=== PATIENT | male | born 1945 | race Caucasian/White ===

== ENCOUNTER 2017-03-10 02:05 | Inpatient (IN) | payer OTHER ==
--- NOTE | 2017-03-10 02:17 | PDOC ---
History of Present Illness - General Chief Complaint: Pain, Acute Stated Complaint: ABDOMINAL PAIN Time Seen by Provider: 03/10/17 02:07 History Source: Patient Exam Limitations: No Limitations - History of Present Illness Initial Comments: 03/10/17 02:14 This is a 72-year-old male with extensive to her history of abdominal surgeries in the past. Patient is had multiple abdominal surgeries including a colostomy that is been reversed and surgeries for a number of different hernias. Patient has a currently an abdominal umbilical hernia that he said occasionally protrudes out but is usually always able to reduce it. However patient teaches a martial arts class and immediately following the class and developed pain in the area of his umbilical hernia. Patient was unable to reduce it and over the next several hours he said is gotten progressively more painful. Patient now comes in for evaluation. Patient said he did have a normal bowel movement today. Patient had a small bowel movement after onset of the pain as well. PAST MEDICAL HISTORY: As per history of present illness PAST SURGICAL HISTORY: no significant history FAMILY HISTORY: no pertinant history SOCIAL HISTORY: Pt lives with family and is employed. MEDICATIONS: reviewed ALLERGIES: As per nursing notes Review of Systems General: No fevers or chills, no weakness, no weight loss HEENT: No change in vision. No sore throat,. No ear pain CardioVascular: No chest pain or shortness of breath Respiratory:No cough, or wheezing. Gastrointestinal: Abdominal pain Genitourinary: No dysuria, hematuria, or frequency Musculoskeletal: No joint or muscle pain or swelling Neurologic: No headache, vertigo, dizziness or loss of consciousness Psychiatric: nor depression Skin: No rashes or easy bruising Endocrine: no increased thirst or abnormal weight change Allergic: no skin or latex allergy All other systems reviewed and normal Exam: General: Well-nourished well-developed individual, no acute distress HEENT: Throat: Normal, tonsils normal, no erythema or exudate Neck: Supple, no meningeal signs, no lymphadenopathy Eyes::Pupils equal reactive and round, extraocular motion intact Chest: Nontender to palpation Cardiac: S1-S2 normal, regular rate and rhythm, no murmurs rubs or gallops Respiratory: Lungs clear to auscultation bilateral Abdomen: Soft, nondistended, decreased bowel sounds and tenderness on palpation above the umbilicus however there is no obvious palpable hernia but patient is markedly tender in the area. Extremities: Warm, dry, no cyanosis, clubbing, or edema Skin: No rashes Neuro: Alert and oriented x3, nonfocal exam, grossly intact, normal gait Psych: Normal mood and affect CT scan shows high-grade small bowel obstruction that is unrelated to the hernia most likely secondary to adhesions. Patient's surgeon is Dr. Hanh Gomez discussed this with him and he recommends we put an NG tube in admitting keep him nothing by mouth. Patient will be admitted under the service of his primary care doctor which is Dr. Serrato but Dr. Marvin does the admissions. Past History - Past Medical History Allergies/Adverse Reactions: Allergies Allergy/AdvReac Type Severity Reaction Status Date / Time ciprofloxacin [From Cipro] Allergy Unverified 11/12/14 14:34 ciprofloxacin HCl Allergy Verified 11/12/14 14:33 [From Cipro] hydromorphone HCl Allergy Verified 11/12/14 14:35 [From Dilaudid] triazolam [From Halcion] Allergy Verified 11/12/14 14:35 Home Medications: Ambulatory Orders Aspirin [ASA -] 81 mg PO DAILY 11/12/14 Candesartan Cilexetil [Atacand -] 1 tab PO DAILY 11/12/14 Cholecalciferol (Vitamin D3) [Vitamin D3] 1 tab PO BID 11/12/14 Lactobacillus Acidophilus [Acidophilus] 1 each PO DAILY 11/12/14 Ranitidine HCl [Zantac] 150 mg PO DAILY 11/12/14 Ubidecarenone [Co Q-10] 10 mg PO DAILY 11/12/14 Fexofenadine HCl [Mi] 180 mg PO PRN PRN 11/15/14 Fluticasone Propionate 16 gm NS PRN 11/15/14 Garlic Extract [Garlipure] 1 tab PO BID #0 11/15/14 Ibuprofen [Advil -] 600 mg PO PRN PRN 11/15/14 Lorazepam [Ativan] 0.5 mg PO PRN PRN 11/15/14 Escitalopram Oxalate [Lexapro -] 15 mg PO HS 07/02/16 Metoprolol Succinate [Toprol XL -] 12.5 mg PO DAILY 07/02/16 Anemia: No Asthma: No Cancer: Yes Cardiac Disorders: No CVA: No COPD: No CHF: No Dementia: No Diabetes: No GI Disorders: Yes (GERD WITH RESOLVED LINDER'S.COLON POLYP,DIVERTICULOSIS) Disorders: No HTN: Yes Hypercholesterolemia: No Liver Disease: No Seizures: No Thyroid Disease: No - Surgical History Abdominal Surgery: Yes (INCISIONAL HERNIA REPAIRS X4) Appendectomy: No Cardiac Surgery: No Cholecystectomy: Yes (LAPAROSCOPIC) Lung Surgery: No Neurologic Surgery: No Orthopedic Surgery: Yes (MENISCUS REPAIR LEFT KNEE) - Psycho/Social/Smoking Cessation Hx Suicidal Ideation: No Smoking History: Former smoker Have you smoked in the past 12 months: No Information on smoking cessation initiated: No Hx Alcohol Use: Yes (WEEKLY) Drug/Substance Use Hx: No Substance Use Type: None Hx Substance Use Treatment: No *Physical Exam - Vital Signs Last Vital Signs Temp Pulse Resp BP Pulse Ox 98.8 F 86 18 126/80 100 03/10/17 02:10 03/10/17 02:10 03/10/17 02:10 03/10/17 02:10 03/10/17 02:10 ED Treatment Course - LABORATORY CBC & Chemistry Diagram: 03/10/17 02:36 03/10/17 02:36 *DC/Admit/Observation/Transfer Diagnosis at time of Disposition: Small bowel obstruction due to adhesions - Discharge Dispostion Condition at time of disposition: Stable Admit: Yes
[2017-03-10] MEDS ORDERED: morphine CARPU-JECT 4 MG/1 ML DISP.SYRIN IVPUSH ONE (02:20)
[2017-03-10] MEDS ORDERED: morphine CARPU-JECT 4 MG/1 ML DISP.SYRIN ONE ×2 (02:22→08:45)
[2017-03-10] MEDS ORDERED: ONDANSETRON 4 MG/2 ML VIAL IVPB ONE (02:36)
[2017-03-10] MEDS ORDERED: ONDANSETRON 4 MG/2 ML VIAL ONE (02:39)
[2017-03-10 03:12] LABS: BASOPHIL 0.3 % (0-2.0); EOSINOPHIL 0.3 % (0-4.5); MCH 29.6 pg (25.7-33.7); MCHC 33.5 g/dl (32.0-35.9); MEAN CELL VOLUME 88.5 fl (80-96); NEUTROPHILS 83.9 % (42.8-82.8); PLATELET COUNT 184 K/MM3 (134-434); RDW 13.8 % (11.9-15.9); WHITE BLOOD COUNT 12.9 K/mm3 (4.0-10.0)
[2017-03-10 03:27] LABS: ALBUMIN 3.9 g/dl (3.4-5.0); ANION GAP 10 (8-16); BILIRUBIN,TOTAL 1.4 mg/dL (0.2-1.0); CALCIUM 9.2 mg/dL (8.5-10.1); CO2 27 mmol/L (21-32); CREATININE 0.9 mg/dL (0.7-1.3); GLUCOSE,RANDOM 102 mg/dL (74-106); SGPT/ALT 24 U/L (12-78); TOT PROT 6.8 g/dl (6.4-8.2)
[2017-03-10 03:28] LABS: ALK PHOS 57 U/L (45-117)
[2017-03-10 03:29] LABS: SGOT/AST 37 U/L (15-37)
[2017-03-10] MEDS ORDERED: morphine CARPU-JECT 2 MG/1 ML DISP.SYRIN IVPUSH ONE (05:21)
[2017-03-10] MEDS ORDERED: morphine CARPU-JECT 2 MG/1 ML DISP.SYRIN ONE (05:21)
[2017-03-10] MEDS ORDERED: LORazepam 0.5 MG TABLET PO PRN (12:07)
[2017-03-10] MEDS ORDERED: FLUTICASONE PROP 0.05% 16 GM NASAL SPRAY NS PRN (12:15)
--- NOTE | 2017-03-10 12:58 | HP ---
DATE OF ADMISSION: 03/10/2017 REFERRING PHYSICIAN: Emergency room. REASON FOR REFERRAL: Small-bowel obstruction. BRIEF HISTORY: This is a 72-year-old gentleman with a multitude of abdominal surgeries, who presented to the hospital with progressive increasing abdominal pain over the past day and a half. The patient thought he was actually getting well prior to this admission to the emergency room since he moved his bowels and has passed gas. Since that event, it did get a little worse and therefore he presented to the ER. In the ER, he underwent a CAT scan of the abdomen and pelvis. CT demonstrated findings consistent with a small bowel obstruction, no obvious transition zone noted. Patient is noted to have an incisional hernia without evidence of obstruction at the hernia site. Currently patient states he feels much better since the tube had gone in (tube output is approximately 1 L of bilious material). PAST MEDICAL HISTORY: As above. PAST SURGICAL HISTORY: Patient has had laparotomies, hernia repairs, bowel resection with colectomy, colostomy and eventual reversal. SOCIAL HISTORY: Patient does not smoke, drinks socially. ALLERGIES: None. MEDICATIONS: Refer to chart. PHYSICAL EXAMINATION: Abdomen: Mildly distended, soft, nontender. He has a poorly-healed midline scar from stem to hassan. He has a small incisional hernia noted at the level of the umbilicus. This is nontender. The remainder of the abdominal examination is unremarkable. He clearly has no peritoneal findings. LABORATORY DATA: White count is 12.9. IMPRESSION/PLAN: Small-bowel obstruction versus partial small-bowel obstruction. At this point, the patient clearly is not acute and there is no evidence of ischemia. I would recommend conservative management with this bowel obstruction at this time. The patient has an NG tube. Will continue with suction and reevaluate. Most of these obstructions will continue to improve with medical management. If his does not, he will ultimately require laparotomy, lysis of adhesions. Will continue to follow patient. Thank you for allowing me to participate in the care of your patient. If you have any questions, please feel free to give me a call directly. DICK AZUL M.D. [id number] cc: Hospitalist
[2017-03-10] MEDS ORDERED: RANITIDINE HCL 150 MG TABLET (FP) PO SCH (13:00)
--- NOTE | 2017-03-10 13:28 | HP ---
DATE OF ADMISSION: 03/10/2017 The patient is a 72-year-old male who was brought in to the emergency room with abdominal pain of a day's duration. Patient has a past medical history of ruptured diverticulitis, and he had a colostomy and had incisional hernias and intestinal obstruction. They have relieved spontaneously and once with NG decompression. He also had a cholecystectomy and multiple other surgeries and has had recurrent intestinal obstruction. Yesterday in the morning, the patient had a bowel movement and subsequently started having abdominal pain. The pain was progressively getting worse and he recognized the pain as being of intestinal obstruction. He brought himself to the emergency room last night as the pain was getting worse. There was no vomiting, there was no fever. In the emergency room, he had a CAT scan that revealed high level small-bowel intestinal obstruction unrelated to the hernia, likely from adhesions. Since then, he has been placed on an NG tube and he feels comfortable but the pain persists. Other past medical history is significant for depression and hypertension. PRESENT MEDICATIONS: Atacand 4 mg p.o. daily, Lexapro 15 mg daily, Toprol XL 12.5 mg daily. ALLERGIES: None. SOCIAL HISTORY: He is . He has 2 children. He is a swim instructor. He is a nonsmoker. He drinks occasionally. FAMILY HISTORY: Significant for 2 brothers. There is no significant family history. REVIEW OF SYSTEMS: Unremarkable. He has generally been in good health. He denies any chronic headache, dizziness, chest pain, palpitations, abdominal pain, loss of weight, loss of appetite. Patient, however, has had on and off abdominal pain that is compatible with partial small-bowel obstruction that gets relieved spontaneously. PHYSICAL EXAMINATION: Vital Signs: He has a blood pressure of 123/70, pulse rate of 92, respiratory rate of 16, temperature 98.3. Head and Neck: He is not pale, not icteric. JVD is absent. Thyroid and carotids appear normal. Heart: Regular rhythm. No murmurs. Lungs: Vesicular breathing. Clear. Abdomen: Multiple surgical incisions. It has mild tenderness in the right upper quadrant and epigastric region. Bowel sounds are absent. Herniorrhaphies are intact. Extremities: No edema. He has a white count of 12,900, with normal distribution of cells. Comprehensive metabolic profile, apart from bilirubin of 1.4, is within normal limits. Patient had a CAT scan that has been preliminarily reported as high-grade small-bowel obstruction unrelated to the hernia. ASSESSMENT AND PLAN: 1. Small-bowel obstruction. Would admit. I shall place him on IV fluids, decompression, pain management, observe, follow electrolytes, surgical evaluation. 2. Hypertension. 3. Depression. Continue present medications which could be administered by clamping the NG tube for a while. DENVER BAZAN M.D. [id number]
[2017-03-10] MEDS: VALSARTAN 40 MG TABLET (FP) PO SCH (13:31)
[2017-03-10] MEDS: METOPROLOL SUCCINATE 25 MG TAB.SR.24H (FP) PO SCH (13:31)
[2017-03-10] MEDS: CHOLECALCIFEROL (VITAMIN D3) 1,000 UNIT TABLET (FP) PO SCH ×2 (13:32→21:24)
[2017-03-10] MEDS: morphine CARPU-JECT 4 MG/1 ML DISP.SYRIN IVPUSH PRN (13:33)
[2017-03-10 17:28] VITALS: BMI 34.8
[2017-03-10] MEDS: ESCITALOPRAM OXALATE 10 MG TABLET (FP) PO SCH (21:24)
[2017-03-11] MEDS: morphine CARPU-JECT 4 MG/1 ML DISP.SYRIN IVPUSH PRN ×3 (00:30→23:18)
[2017-03-11 09:07] LABS: BASOPHIL 0.1 % (0-2.0); EOSINOPHIL 1.6 % (0-4.5); MCH 30.3 pg (25.7-33.7); MCHC 33.5 g/dl (32.0-35.9); MEAN CELL VOLUME 90.4 fl (80-96); MEAN PLT VOLUME 9.2 fl (7.5-11.1); NEUTROPHILS 72.7 % (42.8-82.8); PLATELET COUNT 162 K/MM3 (134-434); RDW 13.5 % (11.9-15.9)
[2017-03-11] MEDS: RANITIDINE HCL 150 MG TABLET (FP) PO SCH (09:10)
[2017-03-11] MEDS: CHOLECALCIFEROL (VITAMIN D3) 1,000 UNIT TABLET (FP) PO SCH ×2 (09:10→21:11)
[2017-03-11] MEDS: METOPROLOL SUCCINATE 25 MG TAB.SR.24H (FP) PO SCH (09:11)
[2017-03-11] MEDS: VALSARTAN 40 MG TABLET (FP) PO SCH (09:11)
--- NOTE | 2017-03-11 09:20 | EKG ---
Test Reason : Blood Pressure : / mmHG Vent. Rate : 090 BPM Atrial Rate : 090 BPM P-R Int : 174 ms QRS Dur : 096 ms QT Int : 368 ms P-R-T Axes : 022 043 003 degrees QTc Int : 450 ms SINUS RHYTHM NONSPECIFIC ST AND T WAVE ABNORMALITY WHEN COMPARED WITH ECG OF 21-JUL-2009 14:05, Criteria for LVH is no longer present Confirmed by LUIS MILLER MD ([id number]) on 03/11/2017 9:19:35 AM Referred By: MD BARRIOS Confirmed By:LUIS MILLER MD
[2017-03-11 09:24] LABS: ALBUMIN 3.5 g/dl (3.5-5.0); ALK PHOS 43 U/L (32-92); BILIRUBIN,TOTAL 1.3 mg/dl (0.2-1.0); CALCIUM 7.7 mg/dl (8.4-10.2); CREATININE 0.9 mg/dl (0.6-1.3); GLUCOSE,RANDOM 113 mg/dl (74-106); SGOT/AST 22 U/L (10-42); SGPT/ALT 16 U/L (10-40); TOT PROT 5.6 g/dl (6.4-8.3)
--- NOTE | 2017-03-11 10:05 | PN ---
Progress Note, Physician Chief Complaint: Mr Gallardo says he is doing well. Still with some abdominal pain but much improved. No chest pain or shortness of breath. - Current Medication List Current Medications: Active Medications Cholecalciferol (Vitamin D3 -) 1,000 unit PO BID [facility] Last Admin: 03/11/17 09:10 Dose: 1,000 unit Escitalopram Oxalate (Lexapro -) 15 mg PO HS [facility] Last Admin: 03/10/17 21:24 Dose: Not Given Fluticasone Propionate (Flonase -) 2 spray NS DAILY PRN PRN Reason: ALLERGIC RHINITIS Lorazepam (Ativan -) 0.5 mg PO BID PRN PRN Reason: ANXIETY Metoprolol Succinate (Toprol Xl -) 12.5 mg PO DAILY [facility] Last Admin: 03/11/17 09:11 Dose: 12.5 mg Morphine Sulfate (Morphine Injection -) 4 mg IVPUSH Q3H PRN PRN Reason: PAIN Last Admin: 03/11/17 00:30 Dose: 4 mg Ranitidine HCl (Zantac -) 150 mg PO DAILY [facility] Last Admin: 03/11/17 09:10 Dose: 150 mg Valsartan (Diovan -) 40 mg PO DAILY [facility] Last Admin: 03/11/17 09:11 Dose: 40 mg - Objective Vital Signs: Vital Signs Temperature 97.6 F 03/11/17 06:35 Pulse Rate 78 03/11/17 06:35 Respiratory Rate 18 03/11/17 08:52 Blood Pressure 134/66 03/11/17 06:35 O2 Sat by Pulse Oximetry (%) 96 03/11/17 08:52 Constitutional: Yes: No Distress, Calm, Obese Cardiovascular: Yes: Regular Rate and Rhythm. No: Gallop, Murmur, Rub Respiratory: Yes: Regular, CTA Bilaterally. No: Rales, Rhonchi, Wheezes Gastrointestinal: Yes: Soft, Hypoactive Bowel Sounds (present but minimal, high pitched), Tenderness. No: Distention Extremities: Yes: WNL Edema: No Labs: CBC, BMP 03/11/17 07:00 03/11/17 07:00 Problem List - Problems (1) Small bowel obstruction due to adhesions Assessment/Plan: -case d/w surgery -NGT in place, remain in place until Saturday -improving -continue IVF Code(s): K56.5 - INTESTINAL ADHESIONS W OBST (POSTPROCEDURAL) (POSTINFECTION) (2) HTN (hypertension) Assessment/Plan: -continue valsartan and metoprolol -controlled Code(s): I10 - ESSENTIAL (PRIMARY) HYPERTENSION (3) Depression Assessment/Plan: -well controlled -continue lexapro Code(s): F32.9 - MAJOR DEPRESSIVE DISORDER, SINGLE EPISODE, UNSPECIFIED
[2017-03-11] MEDS: MENTHOL/PHENOL 1 EACH UD MM PRN ×2 (11:26→23:19)
[2017-03-11 11:29] LABS: ANION GAP 6 (8-16); CO2 27 mmol/L (22-28)
[2017-03-11] MEDS ORDERED: PT OWN MED DRAWER 7, Y5N ONE ×2 (11:39→23:17)
[2017-03-11] MEDS: ESCITALOPRAM OXALATE 10 MG TABLET (FP) PO SCH (21:11)
[2017-03-12 08:55] LABS: ANION GAP 5 (8-16); CALCIUM 8.6 mg/dl (8.4-10.2); CO2 31 mmol/L (22-28); CREATININE 0.8 mg/dl (0.6-1.3); GLUCOSE,RANDOM 108 mg/dl (74-106); PHOSPHOROUS 1.8 mg/dl (2.5-4.6)
[2017-03-12 09:02] LABS: BASOPHIL 1.1 % (0-2.0); EOSINOPHIL 2.8 % (0-4.5); MCH 30.7 pg (25.7-33.7); MCHC 33.9 g/dl (32.0-35.9); MEAN CELL VOLUME 90.5 fl (80-96); MEAN PLT VOLUME 9.4 fl (7.5-11.1); NEUTROPHILS 68.1 % (42.8-82.8); PLATELET COUNT 166 K/MM3 (134-434); RDW 13.3 % (11.9-15.9); WHITE BLOOD COUNT 8.1 K/mm3 (4.0-10.8)
[2017-03-12] MEDS: METOPROLOL SUCCINATE 25 MG TAB.SR.24H (FP) PO SCH (09:47)
[2017-03-12] MEDS: RANITIDINE HCL 150 MG TABLET (FP) PO SCH (09:47)
[2017-03-12] MEDS: CHOLECALCIFEROL (VITAMIN D3) 1,000 UNIT TABLET (FP) PO SCH ×2 (09:47→21:34)
--- NOTE | 2017-03-12 10:53 | PN ---
Progress Note, Physician History of Present Illness: Feeling better, less abd pain (just a little uncomfortable with NG tube still in ). Notes that he has been passing flatus. - Current Medication List Current Medications: Active Medications Acetaminophen (Tylenol -) 650 mg PO Q4H PRN PRN Reason: FEVER OR PAIN Cholecalciferol (Vitamin D3 -) 1,000 unit PO BID [facility] Last Admin: 03/12/17 09:47 Dose: 1,000 unit Escitalopram Oxalate (Lexapro -) 15 mg PO HS [facility] Last Admin: 03/11/17 21:11 Dose: 15 mg Eucalyptus/Menthol/Phenol/Sorbitol (Cepastat Lozenge -) 1 each MM Q4H PRN PRN Reason: SORE THROAT Last Admin: 03/11/17 23:19 Dose: 1 each Fluticasone Propionate (Flonase -) 2 spray NS DAILY PRN PRN Reason: ALLERGIC RHINITIS Lorazepam (Ativan -) 0.5 mg PO BID PRN PRN Reason: ANXIETY Last Admin: 03/11/17 21:11 Dose: 0.5 mg Metoprolol Succinate (Toprol Xl -) 12.5 mg PO DAILY [facility] Last Admin: 03/12/17 09:47 Dose: 12.5 mg Morphine Sulfate (Morphine Injection -) 4 mg IVPUSH Q3H PRN PRN Reason: PAIN Last Admin: 03/11/17 23:18 Dose: 4 mg Ranitidine HCl (Zantac -) 150 mg PO DAILY [facility] Last Admin: 03/12/17 09:47 Dose: 150 mg Valsartan (Diovan -) 40 mg PO DAILY [facility] Last Admin: 03/11/17 09:11 Dose: 40 mg - Objective Vital Signs: Vital Signs Temperature 97.5 F L 03/12/17 07:39 Pulse Rate 60 03/12/17 07:39 Respiratory Rate 17 03/12/17 07:39 Blood Pressure 153/74 03/12/17 07:39 O2 Sat by Pulse Oximetry (%) 94 L 03/12/17 06:59 Constitutional: Yes: No Distress, Calm HENT: Yes: Other (NG tube present with bilious fluid draining) Neck: Yes: Supple, Trachea Midline Cardiovascular: Yes: Regular Rate and Rhythm, S1, S2. No: Murmur Respiratory: Yes: Regular, CTA Bilaterally. No: Rales, Rhonchi, Wheezes Gastrointestinal: Yes: Soft, Other (suction sounds present, non-protruding abd wall hernias). No: Distention, Tenderness Edema: No Neurological: Yes: Alert, Oriented Labs: CBC, BMP 03/12/17 05:53 03/12/17 05:53 Assessment/Plan Current Active Problems Small bowel obstruction due to adhesions (Acute) Depression (Acute) HTN (hypertension) (Acute) -cont NG tube suction, NPO -possible d/c of NG tube tomorrow and observation of SBO resolution
[2017-03-12] MEDS: MENTHOL/PHENOL 1 EACH UD MM PRN (19:30)
[2017-03-12] MEDS: ACETAMINOPHEN 325 MG TABLET (FP) PO PRN (21:02)
[2017-03-12] MEDS ORDERED: PHENOL 177 ML SPRAY BOTTLE MM PRN (21:14)
[2017-03-12] MEDS: D5-NS + 20 MEQ KCL - 1,000 ML IV SCH (21:34)
[2017-03-12] MEDS: ESCITALOPRAM OXALATE 10 MG TABLET (FP) PO SCH (21:34)
[2017-03-12] MEDS: CANDESARTAN CILEXETIL 4 MG TABLET PO SCH (21:35)
[2017-03-12] MEDS: LORAZEPAM CARPU-JECT 2 MG/ML DISP.SYRIN IVPB PRN (22:37)
[2017-03-13 09:18] LABS: ALBUMIN 3.8 g/dl (3.5-5.0); ALK PHOS 48 U/L (32-92); ANION GAP 6 (8-16); BILIRUBIN,TOTAL 1.2 mg/dl (0.2-1.0); CALCIUM 8.8 mg/dl (8.4-10.2); CO2 29 mmol/L (22-28); CREATININE 0.9 mg/dl (0.6-1.3); GLUCOSE,RANDOM 118 mg/dl (74-106); PHOSPHOROUS 2.2 mg/dl (2.5-4.6); SGOT/AST 26 U/L (10-42); SGPT/ALT 20 U/L (10-40); TOT PROT 6.2 g/dl (6.4-8.3)
[2017-03-13] MEDS ORDERED: PT OWN MED DRAWER 7, Y5N ONE ×4 (09:18→21:07)
--- NOTE | 2017-03-13 09:53 | PN ---
Progress Note, Physician Chief Complaint: Mr Gallardo says he is doing well. Minimal drainage from the NGT. Patient with flatus and bowel movements. No cp or sob. - Current Medication List Current Medications: Active Medications Acetaminophen (Tylenol -) 650 mg PO Q4H PRN PRN Reason: FEVER OR PAIN Last Admin: 03/12/17 21:02 Dose: 650 mg Candesartan Cilexetil (Atacand (Nf) -) 4 mg PO HS [facility] Last Admin: 03/12/17 21:35 Dose: 4 mg Cholecalciferol (Vitamin D3 -) 1,000 unit PO BID [facility] Last Admin: 03/12/17 21:34 Dose: 1,000 unit Escitalopram Oxalate (Lexapro -) 15 mg PO HS [facility] Last Admin: 03/12/17 21:34 Dose: 15 mg Eucalyptus/Menthol/Phenol/Sorbitol (Cepastat Lozenge -) 1 each MM Q4H PRN PRN Reason: SORE THROAT Last Admin: 03/12/17 19:30 Dose: 1 each Fluticasone Propionate (Flonase -) 2 spray NS DAILY PRN PRN Reason: ALLERGIC RHINITIS Dextrose/Sodium Chloride (Dextrose 5%-Normal Saline+20 Meq Kcl -) 1,000 mls @ 125 mls/hr IV ASDIR [facility] Last Admin: 03/12/17 21:34 Dose: 125 mls/hr Lorazepam (Ativan Injection -) 0.5 mg IVPB BID PRN PRN Reason: ANXIETY Last Admin: 03/12/17 22:37 Dose: 0.5 mg Metoprolol Succinate (Toprol Xl -) 12.5 mg PO DAILY [facility] Last Admin: 03/12/17 09:47 Dose: 12.5 mg Morphine Sulfate (Morphine Injection -) 4 mg IVPUSH Q3H PRN PRN Reason: PAIN Last Admin: 03/11/17 23:18 Dose: 4 mg Phenol/Menthol (Chloraseptic -) 1 spray MM Q4H PRN PRN Reason: FOR PAIN Last Admin: 03/12/17 21:35 Dose: 1 spray Ranitidine HCl (Zantac -) 150 mg PO DAILY [facility] Last Admin: 03/12/17 09:47 Dose: 150 mg - Objective Vital Signs: Vital Signs Temperature 98.5 F 03/13/17 06:00 Pulse Rate 63 03/13/17 06:00 Respiratory Rate 19 03/13/17 06:00 Blood Pressure 153/78 03/13/17 06:00 O2 Sat by Pulse Oximetry (%) 98 03/13/17 08:59 Constitutional: Yes: Well Nourished, No Distress, Calm Cardiovascular: Yes: Regular Rate and Rhythm. No: Gallop, Murmur, Rub Respiratory: Yes: Regular, CTA Bilaterally. No: Rales, Rhonchi, Wheezes Gastrointestinal: Yes: Normal Bowel Sounds, Soft. No: Distention, Tenderness Extremities: Yes: WNL Edema: No Labs: CBC, BMP 03/12/17 05:53 03/13/17 08:15 Problem List - Problems (1) Small bowel obstruction due to adhesions Code(s): K56.5 - INTESTINAL ADHESIONS W OBST (POSTPROCEDURAL) (POSTINFECTION) (2) HTN (hypertension) Code(s): I10 - ESSENTIAL (PRIMARY) HYPERTENSION (3) Depression Code(s): F32.9 - MAJOR DEPRESSIVE DISORDER, SINGLE EPISODE, UNSPECIFIED Assessment/Plan (1) Small bowel obstruction due to adhesions Assessment/Plan: -resolved -remove NGT -clear liquid diet, advance as tolerated -possible discharge tomorrow Code(s): K56.5 - INTESTINAL ADHESIONS W OBST (POSTPROCEDURAL) (POSTINFECTION) (2) HTN (hypertension) Assessment/Plan: -continue valsartan and metoprolol -slightly elevated today, monitor Code(s): I10 - ESSENTIAL (PRIMARY) HYPERTENSION (3) Depression Assessment/Plan: -well controlled -continue lexapro Code(s): F32.9 - MAJOR DEPRESSIVE DISORDER, SINGLE EPISODE, UNSPECIFIED
[2017-03-13] MEDS: METOPROLOL SUCCINATE 25 MG TAB.SR.24H (FP) PO SCH (10:35)
[2017-03-13] MEDS: CHOLECALCIFEROL (VITAMIN D3) 1,000 UNIT TABLET (FP) PO SCH ×2 (10:35→21:17)
[2017-03-13] MEDS: RANITIDINE HCL 150 MG TABLET (FP) PO SCH (10:36)
[2017-03-13 11:56] LABS: PH,URINE 7.5 (4.5-8); URINE APPEARANCE Clear; URINE BILIRUBIN Negative (NEGATIVE); URINE BLOOD Negative (NEGATIVE); URINE GLUCOSE (UA) Negative (NEGATIVE); URINE KETONE Negative (NEGATIVE); URINE LEUK ESTERASE Negative (NEGATIVE); URINE NITRITE Negative (NEGATIVE); URINE PROTEIN Negative (NEGATIVE); URINE UROBILINOGEN 4.0 E.U/dl (0.2-1.0)
[2017-03-13 11:57] LABS: URINE COLOR YELLOW
--- NOTE | 2017-03-13 12:52 | PN ---
Progress Note (short form) - Note Progress Note: surgery pt seen and examined. feels well. tolerating clear liquids. bm and flatus. no pain afebrile abd- soft, nt Plan- resolving psbo- advance to fulls as tolerates. would stay on liquids for 1 week. should consider elective incisional hernia repair.
[2017-03-13] MEDS: D5-NS + 20 MEQ KCL - 1,000 ML IV SCH (21:15)
[2017-03-13] MEDS: ESCITALOPRAM OXALATE 10 MG TABLET (FP) PO SCH (21:16)
[2017-03-13] MEDS: CANDESARTAN CILEXETIL 4 MG TABLET PO SCH (21:17)
[2017-03-13] MEDS: ACETAMINOPHEN 325 MG TABLET (FP) PO PRN (21:17)
[2017-03-13] MEDS: LORAZEPAM CARPU-JECT 2 MG/ML DISP.SYRIN IVPB PRN (21:18)
[2017-03-14 06:26] VITALS: BP 151/74; PULSE 61; TEMP 97.4
[2017-03-14] MEDS: CHOLECALCIFEROL (VITAMIN D3) 1,000 UNIT TABLET (FP) PO SCH (09:20)
[2017-03-14] MEDS: METOPROLOL SUCCINATE 25 MG TAB.SR.24H (FP) PO SCH (09:20)
[2017-03-14] MEDS: RANITIDINE HCL 150 MG TABLET (FP) PO SCH (09:21)
--- NOTE | 2017-03-14 09:52 | DS ---
Physical Examination Vital Signs: Vital Signs Temperature 97.4 F L 03/14/17 06:24 Pulse Rate 61 03/14/17 06:24 Respiratory Rate 18 03/14/17 06:24 Blood Pressure 151/74 03/14/17 06:24 O2 Sat by Pulse Oximetry (%) 94 L 03/14/17 06:24 Constitutional: Yes: Well Nourished, No Distress, Calm Cardiovascular: Yes: Regular Rate and Rhythm. No: Gallop, Murmur, Rub Respiratory: Yes: Regular, CTA Bilaterally. No: Rales, Rhonchi, Wheezes Gastrointestinal: Yes: Normal Bowel Sounds, Soft. No: Distention, Tenderness Extremities: Yes: WNL Edema: No Labs: CBC, BMP 03/12/17 05:53 03/13/17 08:15 Discharge Summary Reason For Visit: SMALL BOWEL OBSTRUCTION. Current Active Problems Depression (Acute) HTN (hypertension) (Acute) Small bowel obstruction due to adhesions (Acute) Hospital Course: (1) Small bowel obstruction due to adhesions Code(s): K56.5 - INTESTINAL ADHESIONS W OBST (POSTPROCEDURAL) (POSTINFECTION) (2) HTN (hypertension) Code(s): I10 - ESSENTIAL (PRIMARY) HYPERTENSION (3) Depression Code(s): F32.9 - MAJOR DEPRESSIVE DISORDER, SINGLE EPISODE, UNSPECIFIED Mr Gallardo is a very pleasant 72 year old male who comes in with SBO secondary to adhesions. He was admitted and had NGT placed. He was seen by general surgery and felt surgical intervention was not needed unless it did not resolve. After a few days of npo with NGT, he began to have flatus and bowel movements. Bowel sounds returned and pain resolved. NGT was removed and he was started on a diet. He tolerated this well. General surgery recommended full liquid diet for a week, patient was made aware. He is safe for discharge home. 32 minutes spent in preparation of this discharge Condition: Good - Instructions Diet, Activity, Other Instructions: full liquid for a week then advance as tolerated. Resume previous activity Referrals: Edmar Serrato MD [Primary Care Provider] - Basilio Ron MD [Staff Physician] - Disposition: HOME - Home Medications Comprehensive Discharge Medication List: Ambulatory Orders Aspirin [ASA -] 81 mg PO DAILY 11/12/14 Candesartan Cilexetil [Atacand -] 1 tab PO DAILY 11/12/14 Cholecalciferol (Vitamin D3) [Vitamin D3] 1 tab PO BID 11/12/14 Lactobacillus Acidophilus [Acidophilus] 1 each PO DAILY 11/12/14 Ranitidine HCl [Zantac] 150 mg PO DAILY 11/12/14 Ubidecarenone [Co Q-10] 10 mg PO DAILY 11/12/14 Fexofenadine HCl [Mi] 180 mg PO PRN PRN 11/15/14 Fluticasone Propionate 16 gm NS DAILY [facility] 1 spray each nostril 11/15/14 Garlic Extract [Garlipure] 1 tab PO BID #0 11/15/14 Ibuprofen [Advil -] 600 mg PO PRN PRN 11/15/14 Lorazepam [Ativan] 0.5 mg PO BID 11/15/14 Escitalopram Oxalate [Lexapro -] 15 mg PO HS 07/02/16 Metoprolol Succinate [Toprol XL -] 12.5 mg PO DAILY 07/02/16
[2017-03-14] MEDS ORDERED: PT OWN MED DRAWER 7, Y5N ONE (10:25)
== END 2017-03-14 12:00 | disposition home or self-care (01) | DRG 390 ==
LOC: FER 02:05 → FM/S 07:18
PROVIDERS: ADMIT Internal Medicine; ATTEND Internal Medicine
PROC: 0D9670Z Drainage of Stomach with Drainage Device, Via Natural or Artificial Opening (ICD-10-PCS; principal; 2017-03-10)
DX: K56.5 Intestinal adhesions [bands] with obstruction (postinfection) (principal); F32.9 Major depressive disorder, single episode, unspecified; I10 Essential (primary) hypertension; K21.9 Gastro-esophageal reflux disease without esophagitis
CPT/HCPCS: 36415; 71010-TC; 74177-TC; 80048; 80053; 81003; 83690; 83735; 84100; 85025; 93005; 99284-25